=== PATIENT | female | born 1930 | race Caucasian/White ===

== ENCOUNTER 2017-03-10 12:30 | Emergency (ER) | payer MEDICARE ==
[2017-03-10 12:00] LABS: BASOPHILS 0.6 %; BASOPHILS ABSOLUTE 0.05 10/3/uL (0.0-0.16); EOSINOPHILS 2.9 %; EOSINOPHILS ABSOLUTE 0.25 10/3/uL (0.0-0.53); ER CBC TAT 0 Hrs 05 Mins; HEMATOCRIT 42.8 % (36.0-48.0); HEMOGLOBIN 14.3 g/dL (12.0-16.0); IMMATURE GRANULOCYTES 0.2 %; IMMATURE GRANULOCYTES ABSOLUTE 0.02 10/3/uL (0.0-0.11); LYMPHOCYTES 33.1 %; LYMPHOCYTES ABSOLUTE 2.89 10/3/uL (0.67-4.30); MEAN CORPUS HGB CONC 33.4 g/dL (32.0-36.0); MEAN CORPUSCULAR HEMOGLOB 30.8 pg (26.0-34.0); MEAN PLATELET VOLUME 9.2 fL (9.2-13.0); MONOCYTES 8.1 %; MONOCYTES ABSOLUTE 0.71 10/3/uL (0.21-1.20); NEUTROPHILS 55.1 %; NEUTROPHILS ABSOLUTE 4.82 10/3/uL (2.02-8.40); PLATELET COUNT 347 10/3/uL (150-400); RBC DISTRIBUTION WIDTH 14.1 % (12.0-16.0); RED CELL COUNT 4.65 10/6/uL (4.0-5.6); WHITE BLOOD CELLS 8.7 10/3/uL (4.5-10.5)
[2017-03-10 12:01] LABS: MANUAL DIFF NO %
[2017-03-10 12:05] LABS: INTERNATIONAL NORMAL RATI 1.1 UNITS (-); PARTIAL THROMBO TIME 28.6 SEC (22.5-37.2); PROTIME (NOT ORD) 13.8 SEC (12.0-14.5)
[2017-03-10 12:17] LABS: BUN (BLOOD UREA NITROGEN) 17 MG/DL (6-23); CALCIUM, SERUM 10.5 MG/DL (8.5-10.4); CHEST PAIN PROFILE TAT 0 Hrs 22 Mins; CHLORIDE, SERUM 104 MMOL/L (96-112); CO2 (CARBON DIOXIDE) 31 MMOL/L (24-34); CREATININE 1.06 MG/DL (0.55-1.02); GFR AFRICAN AMERICAN 55 ML/MIN (>=60); GFR NON AFRICAN AMERICAN 48 ML/MIN (>=60); GLUCOSE, SERUM 99 MG/DL (60-99); POTASSIUM, SERUM 4.3 MMOL/L (3.5-5.3); SODIUM, SERUM 142 MMOL/L (135-148); TROPONIN I <0.02 NG/ML (<0.05)
[~2017-03-10 12:30] MED LIST: ASA5GR PO; CALTRA600D PO; CYANO1000T PO; ESTROPIPATE0.75 MG PO; FISH-EPA1000 MG PO; K-TABS10 MEQ PO; LORTAB 5 PO; MAGONATE PO; MAXZIDE PO; MELA3 PO; MULTIVIT/MIN PO; PRILO PO; TRILIPIX135 MG PO; VITC500 PO
[2017-03-18] MEDS ORDERED: COZAAR100 MG PO (14:22)
[2017-03-18] MEDS ORDERED: L20 PO (14:23)
[2017-03-18] MEDS ORDERED: ASAB PO (14:24)
[2017-03-18] MEDS ORDERED: KLOR-CON 1010 MEQ PO (14:24)
[2017-03-18] MEDS ORDERED: PRILO PO (14:25)
[2017-03-18] MEDS ORDERED: LOFIB160 PO (14:25)
[2017-03-18] MEDS ORDERED: NEUR100 PO (14:25)
[2017-03-18] MEDS ORDERED: RESTORIL30 MG PO (14:26)
[2017-03-18] MEDS ORDERED: MAG OXIDE250 MG PO (14:26)
[2017-03-18] MEDS ORDERED: CYANO1000T PO (14:27)
[2017-03-18] MEDS ORDERED: CALTRA600D PO (14:27)
[2017-03-18] MEDS ORDERED: THERGRANM PO (14:28)
[2017-03-18] MEDS ORDERED: VITC500 PO (14:28)
[2017-03-18] MEDS ORDERED: CATAPRES2 TOP (14:29)
[2017-03-18] MEDS ORDERED: VITAMIN D400 UNI1 PO (14:29)
[2017-03-19] MEDS ORDERED: ELIQUIS 5 MG TAB5 MG PO (11:40)
== END 2017-03-10 18:15 | disposition home or self-care (01) ==
LOC: ER 12:30
PROVIDERS: Emergency Medicine
DX: I11.0 Hypertensive heart disease with heart failure (principal); I50.9 Heart failure, unspecified; J45.909 Unspecified asthma, uncomplicated; Z79.82 Long term (current) use of aspirin; Z79.899 Other long term (current) drug therapy
CPT/HCPCS: 71020; 80048; 83735; 83880; 84484; 85025; 85610; 85730; 93005; 99285; A9270-GY